=== PATIENT | female | born 2000 | race Caucasian/White ===

== ENCOUNTER 2024-02-04 13:45 | Emergency (ER) | payer OTHER, SELFPAY ==
[2024-02-04] VITALS (11 sets, daily range): BP systolic 102–116; BP diastolic 61–87; PULSE 88–125; TEMP 36.9; O2SAT 100; BMI 21.7
--- NOTE | 2024-02-04 14:05 | CT_ITS ---
The [address] [address] Patient Name: KRISTIN ROBLERO MRN: [id number] date: 2000 Sex: F Assigned Patient Location: ER Current Patient Location: ER Accession/Order Number: [id number] Exam Date: 02/04/2024 14:43 Report Date: 02/04/2024 15:11 At the request of: SHAN GIBBS Procedure: CT cervical spine wo con EXAM: CT head/brain wo con, CT cervical spine wo con CLINICAL INDICATION: Headache COMPARISON: None TECHNIQUE: Axial CT images of the brain and cervical spine were obtained without contrast. Coronal and sagittal reformats were obtained. Dose reduction techniques were achieved by using automated exposure control and/or adjustment of mA and/or kV according to patient size and/or use of iterative reconstruction technique. FINDINGS: No intracranial hemorrhage, extra-axial fluid collection, hydrocephalus, midline shift, or acute infarction. No other mass effect. Patent basal cisterns. No calvarial fracture. Normal soft tissues. Paranasal sinuses and mastoid air cells are well-aerated. Trauma: No fracture, traumatic malalignment, facet dislocation, or epidural hemorrhage. Alignment: Normal craniocervical and cervicothoracic junctions. Straightening of the physiologic cervical lordosis likely relates at least in part to patient positioning. Vertebral Body Heights: Maintained. Spondylotic Changes: Soft Tissues: Slight osteophytic ridging at a few levels. Other: Clear visualized lung apices. Airway is patent. CT/CT cervical spine wo con IMPRESSION: 1. No acute intracranial process. 2. No cervical spine fracture or traumatic malalignment. Electronically authenticated by: COURTNEY WONG Date: 02/04/2024 15:11
--- NOTE | 2024-02-04 14:05 | ED.GENADUL1 ---
HPI HPI - General Adult General Chief complaint: Headache Stated complaint: HEADACHES, NECK PAIN Time Seen by Provider: 02/04/24 13:51 Source: patient History of Present Illness HPI narrative: Patient is a 23-year-old female who presents to the emergency department for continued headaches for the last month. She was initially seen by her primary Care provider, Jerardo and Zofran was ordered for her. She continues to have headaches that she describes behind her eyes in a bandlike fashion around the back of the head into the neck. She has had intermittent tingling in the left hand and the right leg. She states she does have issues with ongoing low back pain. She has not had any loss of bowel or bladder function or incontinence. She has no concern for . Her primary care provider has not ordered any imaging or testing for her. She has not had any upper respiratory symptoms, vomiting. No photophobia. She states she has no peripheral paresthesias at this time Related Data Previous Rx's ?Medication ?Instructions ?Recorded ketorolac 10 mg tablet 10 mg PO TID PRN pain #10 tabs 02/04/24 methocarbamol 750 mg tablet 750 mg PO TID PRN pain #20 tabs 02/04/24 methylprednisolone 4 mg tablets in See Rx Instructions .Route 02/04/24 a dose pack (Medrol (John)) .COMPLEX #21 ea Allergies Allergy/AdvReac Type Severity Reaction Status Date / Time Penicillins AdvReac Severe Rash Verified 02/04/24 13:49 Opioid HPI Opioid Management Most Recent Opioid Data: Last Pain Scale 3 02/04/24 14:37 02/04/24 Last ED Pain Assessment 02/04/24 14:37 Last MAR Pain Assessment 02/04/24 14:21 Review of Systems ROS Constitutional Denies: fever or chills Eyes Denies: change in vision Ears, nose, mouth, and throat Denies: nasal congestion Cardiovascular Denies: chest pain Respiratory Denies: shortness of breath Gastrointestinal Denies: nausea or vomiting Musculoskeletal Reports: back pain and neck pain; Denies: extremity pain or extremity swelling Neurological Reports: headache and numbness in extremities; Denies: weakness in extremities, dizziness or vertigo Hematologic/Lymphatic Denies: easy bruising or easy bleeding PFSH PFSH Social History Little interest or pleasure in doing things: not at all Feeling down, depressed, or hopeless: not at all Exam Narrative Exam Narrative: Gen.: Awake, alert, in no distress Head: Normocephalic, atraumatic ENT: Moist mucous membranes Respiratory: No respiratory distress Extremities: Moves extremities equally, 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, normal dorsiflexion plantarflexion of the lower extremities with no decrease in sensation to the medial thighs Psych: Normal mood and affect Neuro: No focal neuro deficit Skin: Warm, dry, intact Constitutional Vital Signs, click to edit/add: Last Vital Signs Temp 98.4 F 02/04/24 13:50 Pulse 125 H 02/04/24 14:30 Resp 18 02/04/24 14:30 BP 114/76 02/04/24 14:30 Pulse Ox 100 02/04/24 14:36 O2 Del Method Room Air 02/04/24 14:36 Course Vital Signs Vital signs: Vital Signs Temperature 98.4 F 02/04/24 13:50 Pulse Rate 121 H 02/04/24 13:50 Respiratory Rate 18 02/04/24 13:50 Blood Pressure 116/87 02/04/24 13:50 Pulse Oximetry 100 02/04/24 13:50 Temperature 98.4 F 02/04/24 13:50 Pulse Rate 125 H 02/04/24 14:30 Respiratory Rate 18 02/04/24 14:30 Blood Pressure 114/76 02/04/24 14:30 Pulse Oximetry 100 02/04/24 14:36 Oxygen Delivery Method Room Air 02/04/24 14:36 Medical Decision Making MDM Narrative Medical decision making narrative: Patient was treated with IV fluids, Norflex, Toradol, Reglan, Benadryl. She did feel significantly anxious after administration of the Reglan and Benadryl. Patient did have improvement of her symptoms after these medications, CT of the head and C-spine are unremarkable. Patient with no peripheral paresthesias, no focal neurodeficits in the emergency department. Suspect tension headaches, possibly from cervical radiculopathy. Patient will be referred to neurology, she was given prescription medications for home, return to the ER if symptoms change or worsen. Tachycardia improved prior to discharge. SUPERVISED APC VISIT, PHYSICIAN ATTESTATION: Based on the medical record the care appears appropriate. ? Medical Records Medical records reviewed: Yes I reviewed the patient's medical records Imaging Data CT scan - head: Attestation: I have reviewed the pertinent imaging results. Radiologist's impression: ITS Impressions Cervical Spine CT 02/04/24 14:05 IMPRESSION: 1. No acute intracranial process. 2. No cervical spine fracture or traumatic malalignment. Electronically authenticated by: COURTNEY WONG Date: 02/04/2024 15:[address] 02/04/24 14:06 IMPRESSION: 1. No acute intracranial process. 2. No cervical spine fracture or traumatic malalignment. Electronically authenticated by: COURTNEY WONG Date: 02/04/2024 15:11 Discharge Plan Discharge Chief Complaint: Headache Clinical Impression: Headache Patient Disposition: Home, Self-Care Time of Disposition Decision: 15:16 Condition: Good Prescriptions / Home Meds: New ketorolac 10 mg tablet 10 mg PO TID PRN (Reason: pain) Qty: 10 0RF methocarbamol 750 mg tablet 750 mg PO TID PRN (Reason: pain) Qty: 20 0RF methylprednisolone [Medrol (John)] 4 mg tablets,dose pack See Rx Instructions .ROUTE .COMPLEX Qty: 21 0RF Rx Instructions: Taper as directed Print Language: Bengali Instructions: Acute Headache (ED) Referrals: Ronald Huff DO [Physician] - As needed ([facility]) MICHAEL MERCEDES [Primary Care Provider] - 1 week
--- NOTE | 2024-02-04 14:06 | CT_ITS ---
The [address] [address] Patient Name: KRISTIN ROBLERO MRN: [id number] date: 2000 Sex: F Assigned Patient Location: ER Current Patient Location: ER Accession/Order Number: [id number] Exam Date: 02/04/2024 14:43 Report Date: 02/04/2024 15:11 At the request of: SHAN GIBBS Procedure: CT head/brain wo con EXAM: CT head/brain wo con, CT cervical spine wo con CLINICAL INDICATION: Headache COMPARISON: None TECHNIQUE: Axial CT images of the brain and cervical spine were obtained without contrast. Coronal and sagittal reformats were obtained. Dose reduction techniques were achieved by using automated exposure control and/or adjustment of mA and/or kV according to patient size and/or use of iterative reconstruction technique. FINDINGS: No intracranial hemorrhage, extra-axial fluid collection, hydrocephalus, midline shift, or acute infarction. No other mass effect. Patent basal cisterns. No calvarial fracture. Normal soft tissues. Paranasal sinuses and mastoid air cells are well-aerated. Trauma: No fracture, traumatic malalignment, facet dislocation, or epidural hemorrhage. Alignment: Normal craniocervical and cervicothoracic junctions. Straightening of the physiologic cervical lordosis likely relates at least in part to patient positioning. Vertebral Body Heights: Maintained. Spondylotic Changes: Soft Tissues: Slight osteophytic ridging at a few levels. Other: Clear visualized lung apices. Airway is patent. CT/CT head/brain wo con IMPRESSION: 1. No acute intracranial process. 2. No cervical spine fracture or traumatic malalignment. Electronically authenticated by: COURTNEY WONG Date: 02/04/2024 15:11
[2024-02-04] MEDS: 0.9 % SODIUM CHLORIDE 500 ML IV (14:16)
[2024-02-04] MEDS: DIPHENHYDRAMINE HCL 50 MG/ML VIAL 25 MG IV (14:17)
[2024-02-04] MEDS: ORPHENADRINE 60 MG/ 2 ML VIAL IV (14:18)
[2024-02-04] MEDS: KETOROLAC TROMETHAMINE 30 MG/ML VIAL IVP (14:21)
[2024-02-04] MEDS: METOCLOPRAMIDE HCL 10 MG/2 ML VIAL IVP (14:23)
== END 2024-02-04 15:31 | disposition home or self-care (01) ==
PROVIDERS: Emergency Provider Emergency Medicine
DX: R51.9 Headache, unspecified (principal)
CPT/HCPCS: 70450; 72125; 96374; 96375; 99285; J1200; J1885; J2360; J2765